=== PATIENT | female | born 1980 ===

== ENCOUNTER 2016-12-08 22:49 | Emergency (ER) | payer OTHER ==
--- NOTE | 2016-12-08 23:50 | DIAGNOSTIC IMAGING REPORT ---
PROCEDURE: XR KNEE 4 VIEWS - RIGHT INDICATION: TRAUMA/INJURY TECHNIQUE: Four views. COMPARISON: None. FINDINGS: There are moderate degenerative changes of the right knee, primarily affecting the lateral compartment and right patellofemoral joint. There is a small right knee effusion. Osseous structures and joint spaces are otherwise normal. No evidence of fracture. IMPRESSION: 1. Moderate degenerative change of the right knee (lateral compartment and right patellofemoral joint). 2. Small right knee effusion.
--- NOTE | 2016-12-08 23:55 | ED CLINICAL REPORT ---
Clinical Report - Physicians/Mid Levels [facility] [address] [place] [address] 12/08/2016 22:48 Patient: FRANKIE LUNA *This is a preliminary document and is subject to change Time Seen: 22:54. Arrived- By private vehicle. Historian- patient. HISTORY OF PRESENT ILLNESS Chief Complaint: Injury to right knee. The injury happened just prior to arrival. Fell while walking and landed on the ground; slipped. Occurred at home. PAST HISTORY ( Peptic Ulcer Disease. Gastroesophageal Reflux Disease. Substance Abuse. Chronic rib pain. Asthma. SURGERIES: . Hysterectomy. Right knee.). SOCIAL HISTORY Current every day smoker. History of drug use: marijuana. ADDITIONAL NOTES The nursing notes have been reviewed. PHYSICAL EXAM Vital Signs: 12/08/2016 22:53 BP: 108/58. HR: 88. RR: 17. O2 saturation: 100%. Temp: 97.9 F. Pain level now: 02/09. Have been reviewed as normal. Appearance: Alert. Oriented X3. No acute distress. Skin: Skin intact. Skin warm and dry. Normal skin color. Extremities: Right knee: moderate tenderness and mild swelling. Limited ROM secondary to pain (diminished flexion and extension). Small joint effusion present. Neurovascular intact distally. No ligamentous laxity of the anterior cruciate or posterior cruciate. No erythema, ecchymosis or deformity. Lower extremity exam otherwise negative. Extremities otherwise negative. Gait: The patient was unable to bear weight. Neuro, Vascular and Tendons: Vascular status intact. Sensation intact. Motor intact. Neuro: Oriented X 3. No motor deficit. LABS, X-RAYS, AND EKG Rt Knee X-ray: No fracture. Small joint effusion. Mild degenerative joint disease. Views: AP, lateral and oblique. Technique: good. The X-rays were independently viewed by me and interpreted contemporaneously by me. A comparison with prior films reveals that the findings are unchanged. Interpretation time: 23:34. CLINICAL IMPRESSION Right knee effusion. INSTRUCTIONS Apply ice for 20 minutes four times a day until better. Don't apply ice directly to skin. Use crutches until released. Wear knee immobilizer until released. Prescription Medications: Hydrocodone/APAP 5mg / 325mg: take 1 orally every 6 hours as needed for pain. Dispense fifteen (15). No refill. Diclofenac 50 mg tablets: take 1 tablet orally every 6 hours as needed for pain or stiffness. Dispense thirty (30). No refill. Follow-up: Screening today revealed the patient's blood pressure to be in the normal range. Follow-up with: [facility], [facility], , [address], , [place], [id number] Follow up in about two days. Call for an appointment. Rafa Cook Dr.
--- NOTE | 2016-12-08 23:55 | ED CLINICAL REPORT ---
Clinical Report - Physicians/Mid Levels [facility] [address] [place] [address] 12/08/2016 22:48 Patient: FRANKIE LUNA *This is a preliminary document and is subject to change Time Seen: 22:54. Arrived- By private vehicle. Historian- patient. HISTORY OF PRESENT ILLNESS Chief Complaint: Injury to right knee. The injury happened just prior to arrival. Fell while walking and landed on the ground; slipped. Occurred at home. PAST HISTORY ( Peptic Ulcer Disease. Gastroesophageal Reflux Disease. Substance Abuse. Chronic rib pain. Asthma. SURGERIES: . Hysterectomy. Right knee.). SOCIAL HISTORY Current every day smoker. History of drug use: marijuana. ADDITIONAL NOTES The nursing notes have been reviewed. PHYSICAL EXAM Vital Signs: 12/08/2016 22:53 BP: 108/58. HR: 88. RR: 17. O2 saturation: 100%. Temp: 97.9 F. Pain level now: 02/09. Have been reviewed as normal. Appearance: Alert. Oriented X3. No acute distress. Skin: Skin intact. Skin warm and dry. Normal skin color. Extremities: Right knee: moderate tenderness and mild swelling. Limited ROM secondary to pain (diminished flexion and extension). Small joint effusion present. Neurovascular intact distally. No ligamentous laxity of the anterior cruciate or posterior cruciate. No erythema, ecchymosis or deformity. Lower extremity exam otherwise negative. Extremities otherwise negative. Gait: The patient was unable to bear weight. Neuro, Vascular and Tendons: Vascular status intact. Sensation intact. Motor intact. Neuro: Oriented X 3. No motor deficit. LABS, X-RAYS, AND EKG Rt Knee X-ray: No fracture. Small joint effusion. Mild degenerative joint disease. Views: AP, lateral and oblique. Technique: good. The X-rays were independently viewed by me and interpreted contemporaneously by me. A comparison with prior films reveals that the findings are unchanged. Interpretation time: 23:34. CLINICAL IMPRESSION Right knee effusion. INSTRUCTIONS Apply ice for 20 minutes four times a day until better. Don't apply ice directly to skin. Use crutches until released. Wear knee immobilizer until released. Prescription Medications: Hydrocodone/APAP 5mg / 325mg: take 1 orally every 6 hours as needed for pain. Dispense fifteen (15). No refill. Diclofenac 50 mg tablets: take 1 tablet orally every 6 hours as needed for pain or stiffness. Dispense thirty (30). No refill. Follow-up: Screening today revealed the patient's blood pressure to be in the normal range. Follow-up with: [facility], [facility], , [address], , [place], [id number] Follow up in about two days. Call for an appointment. Rafa Cook Dr.
--- NOTE | 2016-12-08 23:55 | ED NURSING NOTES ---
Clinical Report - Nurses [facility] [address] [place] [address] 12/08/2016 22:48 [id number] TRI[facility] Triage time 22:55 Dec 08 2016. Chief Complaint: RIGHT LOWER EXTREMITY PAIN. Location of symptoms- right knee (pt c/o pain to right knee after slipping on a fabric softener on floor, pt presents using personal crutches). Alert. No acute distress. SEPSIS SCREEN: Sepsis Screen: negative. Negative (no infection suspected/documented). CHAYO COMA SCORE: Chayo Coma Scale: 15- eyes open spontaneously (4); best verbal response- oriented x 4 (5); best motor response- obeys commands (6). --23:11 Antonino Chua R.N. 22:53 12/08/16. BP: 108/58 taken on the left arm, while lying. HR: 88. RR: 17. O2 saturation: 100%. Temp: 97.9 F (oral). Pain level now: 02/09. --23:11 Antonino Chua R.N. Weight: 92.9 kg stated. Height/Length: 64 inches Per Patient. BMI: 35.2. --23:01 Antonino Chua R.N. History Arrived by private vehicle. Historian: patient. Accompanied by family. Injury occurred. Location of injuries: right knee. This occurred just prior to arrival. Provoking / relieving factors: worsened by movement and walking. She has had trouble walking. Treatment ASSEMBLER HANDBAGS: None. PAST MEDICAL HX: Tetanus status: up-to-date. Immunizations: up-to-date. Last normal menstrual period- hysterectomy October 2004. Denies current . SOCIAL HX: Heavy tobacco smoker- less than 1 pack per day. Occasional alcohol use. History of occasional drug use: marijuana. No infectious disease exposure. ABUSE ASSESSMENT: No report of abuse. SELF HARM ASSESSMENT: A self harm assessment was performed. The patient answered "no" to the question "Have you recently felt down, depressed, or hopeless?", "Have you noticed less interest or pleasure in doing things?", "Do you have thoughts of harming or killing yourself?", "Are you here because you tried to hurt yourself?", "Have you ever tried to hurt yourself before today?", "Have you recently had thoughts about harming or killing others?" and "Do you have any dangerous items in your possession?". She has been placed under supervision. FALL RISK ASSESSMENT: Fall risk assessment completed. No fall risk identified. NUTRITIONAL RISK ASSESSMENT: The nutritional risk assessment revealed no deficiencies. LEARNING NEEDS ASSESSMENT: The learning needs assessment revealed no barriers. FUNCTIONAL ASSESSMENT: Functional assessment performed: mobility impairment present- this mobility impairment is a new problem. SKIN INTEGRITY ASSESSMENT: Skin integrity risk assessment completed. No skin integrity risk identified. --23:11 Antonino Chua R.N. PROBLEMS: Peptic Ulcer Disease. Gastroesophageal Reflux Disease. Substance Abuse. Chronic rib pain. Asthma. --23:00 Antonino Chua R.N. ADDITIONAL SURGERIES: . Hysterectomy. Right knee. --23:00 Antonino Chua R.N. Interventions ID and allergy band on patient. To treatment room. --23:11 Antonino Chua R.N. PHYSICAL ASSESSMENT Ambulatory to room. (presented with own crutches). Patient gowned. GENERAL / NEURO / PSYCH: Oriented X 4. Alert. EXTREMITIES: Limited ROM present in the right knee. Extremity pulses are within normal limits. Neuro-vascular status intact to the extremity. Right knee: tenderness. Limited ROM secondary to pain. SKIN: Skin intact. Skin is warm and dry. --23:12 Antonino Chua R.N. NURSING PROGRESS NOTES Patient gowned. Reassurance given. Two patient identifiers checked. Call light placed in reach. Side rails up x 1. Bed placed in lowest position. Brakes of bed on. --23:12 Antonino Chua R.N. 23:24 12/08/2016 Toradol (Ketorolac Tromethamine) IM 60 mg given. Given in the right gluteus maria m. Allergies verified and confirmed 5 rights. --23:24 Antonino Chua R.N. ( xray at bedside, warm blanket provided for comfort, s/o at bedside, call light in hand, pt medicated for pain). --23:25 Antonino Chua R.N. Reassessment after medication administered (pt reports improvement in symptoms after IM meds, rates pain "less than a 4"). She is calm and resting quietly and has had no adverse reaction. Overall patient status is improved. GENERAL / NEURO / PSYCH: The patient reports pain that is located in the right knee is still present but improving. Alert. Oriented X 4. RESPIRATORY: No respiratory distress. CVS: Capillary refill less than 2 seconds. EXTREMITIES: Neuro-vascular status intact to the extremities. SKIN: Skin is warm and dry. Patient waiting for disposition. --23:58 Antonino Chua R.N. Immobilizer applied to right knee by nurse; distal pulses intact and sensation intact (pt instructed on necessity to monitor distal cap refill, pt and s/o verbalizes understanding). Reassessment after (+pedal pulse, cap refill less than 2 seconds,). GENERAL / NEURO / PSYCH: The patient reports pain is still present but improving. Alert. Oriented X 4. RESPIRATORY: No respiratory distress. CVS: Capillary refill less than 2 seconds. SKIN: Skin is warm. --00:14 Antonino Chua R.N. 00:03 12/09/2016 Toradol IM Response: no adverse reaction pain is improving. Symptoms have improved the patient feels better. --00:18 Antonino Chua R.N. DISPOSITION / DISCHARGE Departure time: 00:12 Dec 09 2016. Condition at departure: improved. The goals identified in the patient's plan of care were met. No learning barriers present. Discharge instructions provided and reviewed with the patient and spouse. Reviewed medication(s) side effects information. Prescription(s) given to the patient. Activity restrictions reviewed (per MD). Patient verbalized understanding. Written instructions provided in Estonian. The patient was discharged by the physician. She was discharged home and accompanied by spouse. She left the Emergency Department on crutches and via private vehicle. Spouse driving. ( pt ambulated to lobby using crutches without difficulty, pt reports "that feels a lot better with the immobilizer on, I've used them before" pt given RX and f/u.). --00:18 Antonino Chua R.N. 00:15 12/09/16. BP: 101/59. HR: 72. RR: 15. O2 saturation: 99% on room air. Temp: 98 F. Pain level now: 12/10. --00:18 Antonino Chua R.N. Locked/Released at 12/09/2016 0:19 by Antonino Chua R.N.
--- NOTE | 2016-12-08 23:56 | ED ORDER SUMMARY ---
..... Patient: FRANKIE LUNA OrderSheet [facility] VisitID: [id number] [address] [place] [address] 36y, F Registration Date/Time: 12/08/2016 ORDER SHEET Weight: 92.9 kg (stated) Allergies: Macrobid GENERAL ORDERS: Knee 4V Right Urgent (23:10 12/08/2016 Scottie Olivares) (Ack 23:17 SRedmond) (23:21 RFay) MEDICATION ORDERS: Toradol IM 60 mg (NOW) (23:09 12/08/2016 Scottie Olivares) (23:24 Carter R.N.) IV FLUIDS: ORDER SHEET NOTES: This document has not been locked and should not be saved in the medical record.
--- NOTE | 2016-12-08 23:56 | ED ORDER SUMMARY ---
..... Patient: FRANKIE LUNA OrderSheet [facility] VisitID: [id number] [address] [place] [address] 36y, F Registration Date/Time: 12/08/2016 ORDER SHEET Weight: 92.9 kg (stated) Allergies: Macrobid GENERAL ORDERS: Knee 4V Right Urgent (23:10 12/08/2016 Scottie Olivares) (Ack 23:17 SRedmond) (23:21 RFay) MEDICATION ORDERS: Toradol IM 60 mg (NOW) (23:09 12/08/2016 Scottie Olivares) (23:24 Carter R.N.) IV FLUIDS: ORDER SHEET NOTES: This document has not been locked and should not be saved in the medical record.
--- NOTE | 2016-12-09 02:18 | ED MAR SUMMARY ---
..... Medication Administration Record [facility] [address] [place] [address] Patient: FRANKIE LUNA Visit ID: [id number] 36y, F Weight: 92.9 kg Height/Length: 64 in BMI: 35.2 ALLERGIES: Macrobid Given 23:24 12/08/2016 Antonino Chua R.N. Medication Administered: TORADOL [IM] (KETOROLAC TROMETHAMINE), Dose: 60 mg IM. Medication Ordered: Toradol IM 60 mg (NOW).
--- NOTE | 2016-12-09 02:18 | ED DISCHARGE INSTRUCTIONS ---
Patient: FRANKIE LUNA General Instructions [facility] VisitID: [id number] [address] [place] [address] 36y, F Registration Date/Time: 12/08/2016 Right knee effusion. INSTRUCTIONS Apply ice for 20 minutes four times a day until better. Don't apply ice directly to skin. Use crutches until released. Wear knee immobilizer until released. Prescription Medications: Hydrocodone/APAP 5mg / 325mg: take 1 orally every 6 hours as needed for pain. Dispense fifteen (15). No refill. Diclofenac 50 mg tablets: take 1 tablet orally every 6 hours as needed for pain or stiffness. Dispense thirty (30). No refill. Follow-up: Screening today revealed the patient's blood pressure to be in the normal range. Follow-up with: [facility], , [address], [place], [id number] Follow up in about two days. Call for an appointment. ADDITIONAL INFORMATION Sprain, Knee A sprain is an injury to the ligaments or capsule that holds a joint together. There are no broken bones. Most sprains take three to six weeks to heal. If the ligament is completely torn (severe sprain), it can take months to recover from. Most knee sprains are treated with a splint, knee immobilizer or elastic wrap for support. Severe sprains may require surgery. Home care The following guidelines will help you care for your injury at home: Stay off the injured leg as much as possible until you can walk on it without pain. If you have a lot of pain with walking, crutches or a walker may be prescribed. (These can be rented or purchased at many pharmacies and surgical or orthopedic supply stores). Follow your doctor's advice regarding when to begin bearing weight on that leg. Keep your leg elevated to reduce pain and swelling. When sleeping, place a pillow under the injured leg. When sitting, support the injured leg so it is level with your waist. This is very important during the first 48 hours. Apply an ice pack (ice cubes in a plastic bag, wrapped in a towel) over the injured area for 20 minutes every 12 hours the first day. You can place the ice pack directly over the splint. If a Velcro knee immobilizer was applied, you can open this to apply the ice pack directly to the knee. Continue with ice packs 34 times a day for the next two days, then as needed for the relief of pain and swelling. You may use acetaminophen or ibuprofen to control pain, unless another pain medicine was prescribed. If you have chronic liver or kidney disease or ever had a stomach ulcer or GI bleeding, talk with your doctor before using these medicines. If you were given a splint, keep it completely dry at all times. Bathe with your splint out of the water, protected with a large plastic bag, rubber-banded at the top end. If a fiberglass splint gets wet, you can dry it with a hair-dryer. If you have a Velcro knee immobilizer, you can remove this to bathe, unless told otherwise. Follow-up care Follow up with your doctor as advised. Any X-rays you had today dont show any broken bones, breaks, or fractures. Sometimes fractures dont show up on the first X-ray. Bruises and sprains can sometimes hurt as much as a fracture. These injuries can take time to heal completely. If your symptoms dont improve or they get worse, talk with your doctor. You may need a repeat X-ray. When to seek medical care Get prompt medical attention if any of the following occur: The plaster cast or splint becomes wet or soft The fiberglass cast or splint remains wet for more than 24 hours Pain or swelling increases Toes become cold, blue, numb or tingly Crutch Walking Crutch Adjustment Make sure the crutches you use are adjusted to fit you. When you stand, there should be room to fit 2-3 fingers between the top of the crutch and your armpit. Your elbow should be slightly bent when holding the hand pot annealer. Crutch Walking: Place the crutches forward 12" in front of and 6" to the side of your feet. Lean your weight forward as you push down on the handgrips. Your weight should be on your hands and yourstrong leg, not your armpits . Let your body swing through, landing on the strong leg. Advance the crutches forward again. The crutch and the injured leg should move together. Going Up Steps: ("Up with the good") With both crutches on the same step as your feet, push down on the handgrips. Balancing with very light pressure on the weak leg, let your hands support your weight as you raise your strong leg onto the next higher step. Transfer all your weight to your strong leg (still bent) as you move the crutches up to the next step alongside the strong leg. With your weight evenly balanced on the two crutches and your strong leg, straighten your strong knee as you raise the weak leg up to the next step. Going Down Steps: ("Down with the bad") With both crutches on the same step as your feet, push down on the handgrips. With your weight evenly balanced on the two crutches and your strong leg, bend your strong knee as you lower the weak leg down to the next step. Let your strong leg support you (still bent) as you move the crutches down alongside the weak leg. Transfer your weight to your hands, balancing with very light pressure on the weak leg as you lower your strong leg alongside your weak leg. Knee Immobilizer A KNEE IMMOBILIZER is used to provide support and limit movement of the knee. This will make you more comfortable as your injury heals. Home Use: 1) Unless told otherwise, the knee brace should be worn whenever you are out of bed. You may wear it in bed while asleep for the first few nights or until the pain starts to go away. Otherwise, remove the brace at night to avoid muscle stiffness from lack of joint movement. 2) You can open the velcro brace to dress, bathe and apply ice packs as directed. Get Prompt Medical Attention if any of the following occur: -- Worsening pain in the knee -- Weakness or numbness or tingling in the foot -- Increased swelling, redness or warmth of the knee joint Hydrocodone Bitartrate, Acetaminophen Oral tablet What is this medicine? ACETAMINOPHEN; HYDROCODONE (a set a GILLES mehran fen; buck droe KOE done) is a pain reliever. It is used to treat mild to moderate pain. How should I use this medicine? Take this medicine by mouth. Swallow it with a full glass of water. Follow the directions on the prescription label. If the medicine upsets your stomach, take the medicine with food or milk. Do not take more than you are told to take. Talk to your fruit receiver regarding the use of this medicine in children. This medicine is not approved for use in children. What side effects may I notice from receiving this medicine? Side effects that you should report to your doctor or health health careers instructor as soon as possible: allergic reactions like skin rash, itching or hives, swelling of the face, lips, or tongue breathing problems confusion feeling faint or lightheaded, falls stomach pain yellowing of the eyes or skin Side effects that usually do not require medical attention (report to your doctor or health health careers instructor if they continue or are bothersome): nausea, vomiting stomach upset What may interact with this medicine? alcohol antihistamines isoniazid medicines for depression, anxiety, or psychotic disturbances medicines for sleep muscle relaxants naltrexone narcotic medicines (opiates) for pain phenobarbital ritonavir tramadol What if I miss a dose? If you miss a dose, take it as soon as you can. If it is almost time for your next dose, take only that dose. Do not take double or extra doses. Where should I keep my medicine? Keep out of the reach of children. This medicine can be abused. Keep your medicine in a safe place to protect it from theft. Do not share this medicine with anyone. Selling or giving away this medicine is dangerous and against the law. Store at room temperature between 15 and 30 degrees C (59 and 86 degrees F). Protect from light. Keep container tightly closed. Throw away any unused medicine after the expiration date. Discard unused medicine and used packaging carefully. Pets and children can be harmed if they find used or lost packages. What should I tell my health care provider before I take this medicine? They need to know if you have any of these conditions: brain tumor Crohn's disease, inflammatory bowel disease, or ulcerative colitis drink more than 3 alcohol-containing drinks per day drug abuse or addiction head injury heart or circulation problems kidney disease or problems going to the bathroom liver disease lung disease, asthma, or breathing problems an unusual or allergic reaction to acetaminophen, hydrocodone, other opioid analgesics, other medicines, foods, dyes, or preservatives or trying to get breast-feeding What should I watch for while using this medicine? Tell your doctor or health health careers instructor if your pain does not go away, if it gets worse, or if you have new or a different type of pain. You may develop tolerance to the medicine. Tolerance means that you will need a higher dose of the medicine for pain relief. Tolerance is normal and is expected if you take the medicine for a long time. Do not suddenly stop taking your medicine because you may develop a severe reaction. Your body becomes used to the medicine. This does NOT mean you are addicted. Addiction is a behavior related to getting and using a drug for a non-medical reason. If you have pain, you have a medical reason to take pain medicine. Your doctor will tell you how much medicine to take. If your doctor wants you to stop the medicine, the dose will be slowly lowered over time to avoid any side effects. You may get drowsy or dizzy when you first start taking the medicine or change doses. Do not drive, use machinery, or do anything that may be dangerous until you know how the medicine affects you. Stand or sit up slowly. There are different types of narcotic medicines (opiates) for pain. If you take more than one type at the same time, you may have more side effects. Give your health care provider a list of all medicines you use. Your doctor will tell you how much medicine to take. Do not take more medicine than directed. Call emergency for help if you have problems breathing. The medicine will cause constipation. Try to have a bowel movement at least every 2 to 3 days. If you do not have a bowel movement for 3 days, call your doctor or health health careers instructor. Too much acetaminophen can be very dangerous. Do not take Tylenol (acetaminophen) or medicines that contain acetaminophen with this medicine. Many non-prescription medicines contain acetaminophen. Always read the labels carefully. You have been given the following additional information: Knee Sprain Crutch Walking Knee Immobilizer Hydrocodone Bitartrate, Acetaminophen Oral tablet (Electronically signed by Rafa Cook Dr. 12/09/2016 2:17)
--- NOTE | 2016-12-09 02:18 | ED MED RECONCILIATION SUMMARY ---
Patient: FRANKIE LUNA Medication Reconciliation Report [facility] VisitID: [id number] [place] [address] 36y, F Registration Date/Time: 12/08/2016 Weight: 92.9 kg Height/Length: 64 in. BMI: 35.2 ALLERGIES: Macrobid The patient's Home Medications are listed below: THE FOLLOWING MEDICATIONS NEED TO BE RECONCILED: Gabapentin Oral (300 mg) 1 capsule, 2x a day Muscle Relaxant Omeprazole Oral Omeprazole Oral, pt does not know dosage Ondansetron Oral Sertraline HCl Oral Vitamin D Oral The source(s) of the original Home Medication information: Not obtained. The following Medications were given to the patient in the Emergency Department: Toradol [IM] IM 60 mg, administered: 12/08/2016 11:24:00 PM The following Medications were prescribed to the patient: Hydrocodone/APAP 5mg / 325mg: take 1 orally every 6 hours as needed for pain. Dispense fifteen (15). No refill. -- Rafa Cook Dr. Diclofenac 50 mg tablets: take 1 tablet orally every 6 hours as needed for pain or stiffness. Dispense thirty (30). No refill. -- Rafa Cook Dr.
--- NOTE | 2016-12-09 02:18 | ED MED RECONCILIATION SUMMARY ---
Patient: FRANKIE LUNA Medication Reconciliation Report [facility] VisitID: [id number] [place] [address] 36y, F Registration Date/Time: 12/08/2016 Weight: 92.9 kg Height/Length: 64 in. BMI: 35.2 ALLERGIES: Macrobid The patient's Home Medications are listed below: THE FOLLOWING MEDICATIONS NEED TO BE RECONCILED: Gabapentin Oral (300 mg) 1 capsule, 2x a day Muscle Relaxant Omeprazole Oral Omeprazole Oral, pt does not know dosage Ondansetron Oral Sertraline HCl Oral Vitamin D Oral The source(s) of the original Home Medication information: Not obtained. The following Medications were given to the patient in the Emergency Department: Toradol [IM] IM 60 mg, administered: 12/08/2016 11:24:00 PM The following Medications were prescribed to the patient: Hydrocodone/APAP 5mg / 325mg: take 1 orally every 6 hours as needed for pain. Dispense fifteen (15). No refill. -- Rafa Cook Dr. Diclofenac 50 mg tablets: take 1 tablet orally every 6 hours as needed for pain or stiffness. Dispense thirty (30). No refill. -- Rafa Cook Dr.
--- NOTE | 2016-12-09 02:18 | ED MAR SUMMARY ---
..... Medication Administration Record [facility] [address] [place] [address] Patient: FRANKIE LUNA Visit ID: [id number] 36y, F Weight: 92.9 kg Height/Length: 64 in BMI: 35.2 ALLERGIES: Macrobid Given 23:24 12/08/2016 Antonino Chua R.N. Medication Administered: TORADOL [IM] (KETOROLAC TROMETHAMINE), Dose: 60 mg IM. Medication Ordered: Toradol IM 60 mg (NOW).
--- NOTE | 2016-12-09 02:18 | ED DISCHARGE INSTRUCTIONS ---
Patient: FRANKIE LUNA General Instructions [facility] VisitID: [id number] [address] [place] [address] 36y, F Registration Date/Time: 12/08/2016 Right knee effusion. INSTRUCTIONS Apply ice for 20 minutes four times a day until better. Don't apply ice directly to skin. Use crutches until released. Wear knee immobilizer until released. Prescription Medications: Hydrocodone/APAP 5mg / 325mg: take 1 orally every 6 hours as needed for pain. Dispense fifteen (15). No refill. Diclofenac 50 mg tablets: take 1 tablet orally every 6 hours as needed for pain or stiffness. Dispense thirty (30). No refill. Follow-up: Screening today revealed the patient's blood pressure to be in the normal range. Follow-up with: [facility], , [address], [place], [id number] Follow up in about two days. Call for an appointment. ADDITIONAL INFORMATION Sprain, Knee A sprain is an injury to the ligaments or capsule that holds a joint together. There are no broken bones. Most sprains take three to six weeks to heal. If the ligament is completely torn (severe sprain), it can take months to recover from. Most knee sprains are treated with a splint, knee immobilizer or elastic wrap for support. Severe sprains may require surgery. Home care The following guidelines will help you care for your injury at home: Stay off the injured leg as much as possible until you can walk on it without pain. If you have a lot of pain with walking, crutches or a walker may be prescribed. (These can be rented or purchased at many pharmacies and surgical or orthopedic supply stores). Follow your doctor's advice regarding when to begin bearing weight on that leg. Keep your leg elevated to reduce pain and swelling. When sleeping, place a pillow under the injured leg. When sitting, support the injured leg so it is level with your waist. This is very important during the first 48 hours. Apply an ice pack (ice cubes in a plastic bag, wrapped in a towel) over the injured area for 20 minutes every 12 hours the first day. You can place the ice pack directly over the splint. If a Velcro knee immobilizer was applied, you can open this to apply the ice pack directly to the knee. Continue with ice packs 34 times a day for the next two days, then as needed for the relief of pain and swelling. You may use acetaminophen or ibuprofen to control pain, unless another pain medicine was prescribed. If you have chronic liver or kidney disease or ever had a stomach ulcer or GI bleeding, talk with your doctor before using these medicines. If you were given a splint, keep it completely dry at all times. Bathe with your splint out of the water, protected with a large plastic bag, rubber-banded at the top end. If a fiberglass splint gets wet, you can dry it with a hair-dryer. If you have a Velcro knee immobilizer, you can remove this to bathe, unless told otherwise. Follow-up care Follow up with your doctor as advised. Any X-rays you had today dont show any broken bones, breaks, or fractures. Sometimes fractures dont show up on the first X-ray. Bruises and sprains can sometimes hurt as much as a fracture. These injuries can take time to heal completely. If your symptoms dont improve or they get worse, talk with your doctor. You may need a repeat X-ray. When to seek medical care Get prompt medical attention if any of the following occur: The plaster cast or splint becomes wet or soft The fiberglass cast or splint remains wet for more than 24 hours Pain or swelling increases Toes become cold, blue, numb or tingly Crutch Walking Crutch Adjustment Make sure the crutches you use are adjusted to fit you. When you stand, there should be room to fit 2-3 fingers between the top of the crutch and your armpit. Your elbow should be slightly bent when holding the hand biomechanical engineer. Crutch Walking: Place the crutches forward 12" in front of and 6" to the side of your feet. Lean your weight forward as you push down on the handgrips. Your weight should be on your hands and yourstrong leg, not your armpits . Let your body swing through, landing on the strong leg. Advance the crutches forward again. The crutch and the injured leg should move together. Going Up Steps: ("Up with the good") With both crutches on the same step as your feet, push down on the handgrips. Balancing with very light pressure on the weak leg, let your hands support your weight as you raise your strong leg onto the next higher step. Transfer all your weight to your strong leg (still bent) as you move the crutches up to the next step alongside the strong leg. With your weight evenly balanced on the two crutches and your strong leg, straighten your strong knee as you raise the weak leg up to the next step. Going Down Steps: ("Down with the bad") With both crutches on the same step as your feet, push down on the handgrips. With your weight evenly balanced on the two crutches and your strong leg, bend your strong knee as you lower the weak leg down to the next step. Let your strong leg support you (still bent) as you move the crutches down alongside the weak leg. Transfer your weight to your hands, balancing with very light pressure on the weak leg as you lower your strong leg alongside your weak leg. Knee Immobilizer A KNEE IMMOBILIZER is used to provide support and limit movement of the knee. This will make you more comfortable as your injury heals. Home Use: 1) Unless told otherwise, the knee brace should be worn whenever you are out of bed. You may wear it in bed while asleep for the first few nights or until the pain starts to go away. Otherwise, remove the brace at night to avoid muscle stiffness from lack of joint movement. 2) You can open the velcro brace to dress, bathe and apply ice packs as directed. Get Prompt Medical Attention if any of the following occur: -- Worsening pain in the knee -- Weakness or numbness or tingling in the foot -- Increased swelling, redness or warmth of the knee joint Hydrocodone Bitartrate, Acetaminophen Oral tablet What is this medicine? ACETAMINOPHEN; HYDROCODONE (a set a GILLES mehran fen; buck droe KOE done) is a pain reliever. It is used to treat mild to moderate pain. How should I use this medicine? Take this medicine by mouth. Swallow it with a full glass of water. Follow the directions on the prescription label. If the medicine upsets your stomach, take the medicine with food or milk. Do not take more than you are told to take. Talk to your reversal print inspector regarding the use of this medicine in children. This medicine is not approved for use in children. What side effects may I notice from receiving this medicine? Side effects that you should report to your doctor or health pharmacy customer care specialist as soon as possible: allergic reactions like skin rash, itching or hives, swelling of the face, lips, or tongue breathing problems confusion feeling faint or lightheaded, falls stomach pain yellowing of the eyes or skin Side effects that usually do not require medical attention (report to your doctor or health pharmacy customer care specialist if they continue or are bothersome): nausea, vomiting stomach upset What may interact with this medicine? alcohol antihistamines isoniazid medicines for depression, anxiety, or psychotic disturbances medicines for sleep muscle relaxants naltrexone narcotic medicines (opiates) for pain phenobarbital ritonavir tramadol What if I miss a dose? If you miss a dose, take it as soon as you can. If it is almost time for your next dose, take only that dose. Do not take double or extra doses. Where should I keep my medicine? Keep out of the reach of children. This medicine can be abused. Keep your medicine in a safe place to protect it from theft. Do not share this medicine with anyone. Selling or giving away this medicine is dangerous and against the law. Store at room temperature between 15 and 30 degrees C (59 and 86 degrees F). Protect from light. Keep container tightly closed. Throw away any unused medicine after the expiration date. Discard unused medicine and used packaging carefully. Pets and children can be harmed if they find used or lost packages. What should I tell my health care provider before I take this medicine? They need to know if you have any of these conditions: brain tumor Crohn's disease, inflammatory bowel disease, or ulcerative colitis drink more than 3 alcohol-containing drinks per day drug abuse or addiction head injury heart or circulation problems kidney disease or problems going to the bathroom liver disease lung disease, asthma, or breathing problems an unusual or allergic reaction to acetaminophen, hydrocodone, other opioid analgesics, other medicines, foods, dyes, or preservatives or trying to get breast-feeding What should I watch for while using this medicine? Tell your doctor or health pharmacy customer care specialist if your pain does not go away, if it gets worse, or if you have new or a different type of pain. You may develop tolerance to the medicine. Tolerance means that you will need a higher dose of the medicine for pain relief. Tolerance is normal and is expected if you take the medicine for a long time. Do not suddenly stop taking your medicine because you may develop a severe reaction. Your body becomes used to the medicine. This does NOT mean you are addicted. Addiction is a behavior related to getting and using a drug for a non-medical reason. If you have pain, you have a medical reason to take pain medicine. Your doctor will tell you how much medicine to take. If your doctor wants you to stop the medicine, the dose will be slowly lowered over time to avoid any side effects. You may get drowsy or dizzy when you first start taking the medicine or change doses. Do not drive, use machinery, or do anything that may be dangerous until you know how the medicine affects you. Stand or sit up slowly. There are different types of narcotic medicines (opiates) for pain. If you take more than one type at the same time, you may have more side effects. Give your health care provider a list of all medicines you use. Your doctor will tell you how much medicine to take. Do not take more medicine than directed. Call emergency for help if you have problems breathing. The medicine will cause constipation. Try to have a bowel movement at least every 2 to 3 days. If you do not have a bowel movement for 3 days, call your doctor or health pharmacy customer care specialist. Too much acetaminophen can be very dangerous. Do not take Tylenol (acetaminophen) or medicines that contain acetaminophen with this medicine. Many non-prescription medicines contain acetaminophen. Always read the labels carefully. You have been given the following additional information: Knee Sprain Crutch Walking Knee Immobilizer Hydrocodone Bitartrate, Acetaminophen Oral tablet (Electronically signed by Rafa Cook Dr. 12/09/2016 2:17)
== END 2016-12-09 00:12 | disposition home or self-care (01) ==
LOC: ED SRH 22:49
DX: M25.461 Effusion, right knee (principal); W01.0XXA Fall on same level from slipping, tripping and stumbling without subsequent striking against object, initial encounter; Y93.01 Activity, walking, marching and hiking; Y92.009 Unspecified place in unspecified non-institutional (private) residence as the place of occurrence of the external cause; F17.210 Nicotine dependence, cigarettes, uncomplicated